=== PATIENT | male | born 1985 | race Hispanic/Latino ===

== ENCOUNTER 2017-10-06 21:18 | Inpatient (IN) | payer OTHER, SELFPAY ==
[2017-10-06 22:06] VITALS: BMI 31.5
[2017-10-06] MEDS ORDERED: Morphine 5 MG/ML SYRINGE SLOW IVP PRN (22:28)
[2017-10-06] MEDS ORDERED: HYDROcodone/Acetaminophen 5/325 mg Tablet PO SCH (22:30)
[2017-10-06] MEDS ORDERED: Acetaminophen 325 MG TAB PO PRN (22:58)
[2017-10-06] MEDS ORDERED: Acetaminophen 650 MG Suppository PR PRN (22:58)
[2017-10-06] MEDS ORDERED: Sodium Chloride 0.9% 1,000 ML IV SCH (23:30)
[2017-10-06] MEDS ORDERED: Ibuprofen 200 MG TAB PO PRN (23:45)
[2017-10-06] MEDS ORDERED: HYDROcodone/Acetaminophen 5/325 mg Tablet PO PRN (23:45)
[2017-10-06] MEDS ORDERED: traMADol HCl 50 MG TAB PO SCH (23:59)
[2017-10-06] MEDS ORDERED: [UNRECOGNIZED DRUG - OTHER] IVPB SCH (23:59)
[2017-10-07] MEDS ORDERED: metroNIDAZOLE 500 MG/100 ML BAG IVPB SCH ×2 (00:15→08:00)
[2017-10-07] MEDS ORDERED: Piperacillin/Tazobactam 3.375 GM in Sodium Chloride 0.9% 100 ML IVPB SCH ×2 (00:15→06:00)
[2017-10-07] MEDS: Ketorolac Tromethamine 30 MG/ML VIAL IVP PRN ×2 (00:38→07:56)
--- NOTE | 2017-10-07 00:38 | HP ---
PRIMARY CARE PHYSICIAN: Unknown. CHIEF COMPLAINT: Facial pain. HISTORY OF PRESENT ILLNESS: Mr. Yeboah is a pleasant 32-year-old gentleman who was seen at [facility] after he was transferred from the hospital at [facility] for periodontal absce ss. He reports that he does not have any past medical history, 4 days ago, he started having swelling ove r the left side of his face and the maxillary region. He reports that it is very painful, but is rebekah ble to describe the pain further. He reports having fevers. He presented to the emergency room at [facility] yesterday. There, he was seen and refused admission initially, but subsequently got admitte d. He was started on antibiotics. He had CT scan of the face which showed a periodontal abscess. The physician there reportedly spoke to oral maxillofacial surgeon at this facility and was advised to transfer the patient to this facili ty for further management. Patient denies any chest pain or shortness of breath. He denies any nausea or vomiting. REVIEW OF SYSTEMS: The following complete review of systems was negative, unless otherwise mentioned in the HPI or below: Constitutional: Weight loss or gain, ability to conduct usual activities. Sk in: Rash, itching. Eyes: Double vision, pain. ENT/Mouth: Nose bleeding, neck stiffness, pain, te nderness. Cardiovascular: Palpitations, dyspnea on exertion, orthopnea. Respiratory: Shortness of breath, wheezing, cough, hemoptysis, fever or night sweats. Gastrointestinal: Poor appetite, abdom inal pain, heartburn, nausea, vomiting, constipation, or diarrhea. Genitourinary: Urgency, frequenc y, dysuria, nocturia. Musculoskeletal: Pain, swelling. Neurologic/Psychiatric: Anxiety, depressio n. Allergy/Immunologic: Skin rash, bleeding tendency. PAST MEDICAL HISTORY: None. PAST SURGICAL HISTORY: None. FAMILY HISTORY: Diabetes mellitus in his father. SOCIAL HISTORY: The patient denies tobacco use, alcohol use or recreational drug use. ALLERGIES: No known drug allergies. CURRENT MEDICATIONS: At [facility], he was on [place] p.r.n., tramadol p.r.n., Zosyn 3.38 gram s every 6 hours, ibuprofen p.r.n., metronidazole 500 mg intravenously every 8 hours. PHYSICAL EXAMINATION: GENERAL: On examination, Mr. Yeboah is awake and alert, not in acute distress. VITAL SIGNS: Temperature is 100.3 degrees Fahrenheit. Pulse is 86. His breathing at rate of 20 and saturating 95% on room air. Blood pressure is 122/79. EYES: No scleral icterus. No conjunctival pallor. ENT: He has tenderness over the left maxilla. Mucosal membranes are moist. NECK: Supple, nontender, normal range of movement. Trachea is midline. RESPIRATORY: Accessory muscles of breathing are not active. Chest wall movements are symmetric bila terally. LUNGS: Clear to auscultation without wheeze, rhonchi or crepitations. CARDIOVASCULAR: S1 and S2 are heard, regular. Peripheral pulses palpable. No carotid bruit, no per icardial rub. ABDOMEN: Soft, nontender, bowel sounds heard, no hepatomegaly, splenomegaly. NEUROLOGIC: Cranial nerves II-XII are intact. Deep tendon reflexes are 2+. SKIN: Tenderness over the left maxilla, erythema in that region. LYMPHATIC: No cervical lymphadenopathy. PSYCHIATRIC: Normal mood, normal affect, patient is oriented to person, place, and time. LABORATORY DATA: Mr. Yeboah' labs and investigations were reviewed. He had a CT scan of the face wit h contrast, which showed a periodontal abscess along the left aspect of the maxilla, with the origin and impacted tooth along the left maxilla which is either a ley or a premolar. He had normal elec trolytes, normal creatinine, leukocytosis with 11,600 white cells, of which 9500 are neutrophils, nor mal hemoglobin, normal platelet count. ASSESSMENT AND PLAN: Mr. Yeboah is a pleasant 32-year-old gentleman who was seen at [facility] following transfer from [facility]. His problem list includes: 1. Facial pain secondary to periodontal abscess: 2. Periodontal abscess: Patient will be admitted to the hospital for further management including a ntibiotics. We will also keep him n.p.o. after midnight and start him on intravenous fluids. OMFS s erlizziee will be consulted in the morning for possible surgery. Pain medications will be provided. LEVEL OF RISK: Moderate. LEVEL OF COMPLEXITY: Moderate.
[2017-10-07] MEDS ORDERED: traMADol HCl 50 MG TAB PO PRN (01:45)
[2017-10-07 06:05] LABS: #Eosinphils 0.1 thou/uL (0.0-0.7); #Lymphocytes 1.4 thou/uL (1.20-3.40); #Monocytes 0.7 thou/uL (0.11-0.59); #Neutrophils 5.9 thou/uL (1.40-6.50); %Basophils 0.5 % (0.0-1.0); %Eosinophils 0.6 % (0.0-10.0); %Lymphocytes 17.5 % (21.0-51.0); %Monocytes 8.1 % (0.0-10.0); %Neutrophils 73.3 % (42.0-75.0); Hemoglobin 13.4 g/dL (14.0-18.0); Mean Corpuscular HGB CONC 32.9 g/dL (32.0-36.0); Mean Corpuscular Hemoglobin 28.4 pg (27.0-31.0); Mean Corpuscular Volume 86.5 fl (80.0-94.0); Mean Platelet Volume 8.2 fL (7.4-10.4); Platelet Count 167 thou/uL (130-400); RBC Distribution Width 12.5 % (11.5-14.5); Red Blood Cell (RBC) Count 4.73 mill/uL (4.70-6.10)
[2017-10-07 06:25] LABS: Anion Gap 9 mmol/L (10-20); BUN (Urea Nitrogen) 10 mg/dL (8.9-20.6); Calc. Creatinine Clearance 122 mL/min (70-130); Calcium 8.9 mg/dL (7.8-10.44); Carbon Dioxide 30 mmol/L (22-29); Chloride 103 mmol/L (98-107); Estimated GFR-MDRD 69; Glucose 112 mg/dL (70-105); Potassium 3.9 mmol/L (3.5-5.1); Sodium 138 mmol/L (136-145)
[2017-10-07 08:26] VITALS: BP 118/75; TEMP 99.8
== END 2017-10-07 10:14 | disposition short-term general hospital (02) | DRG 159 ==
LOC: SURG A 21:18
PROVIDERS: ADMIT Internal Medicine Infectious Disease; ATTEND Internal Medicine Infectious Disease
DX: K05.219 Aggressive periodontitis, localized, unspecified severity (principal)
CPT/HCPCS: 36415; 80048; 85025; J1885; J2543; J7050